=== PATIENT | male | born 1955 | race Caucasian/White ===

== ENCOUNTER 2023-03-30 14:15 | Emergency (ER) | payer OTHER ==
[~2023-03-30] VITALS: Ht 175.3 cm; Wt 77.1 kg
[~2023-03-30 14:15] MED LIST: ALBU90OI INH; ATOR10 PO; BISA5EC PO; CITA20 PO; CLON1 PO; CLOP75 PO; CYCL10 PO; Hydroxyzine HCl50 MG PO; MELA3 PO; METO50ER PO; MULVITB&C PO; OLAN20 MM; PIRO20 PO; PROAIR RESPICL90 MCG INH; SYMBICORT 160-4.6 GM INH; TAMS.4ER PO; TIOT18 INH; TOPI25 PO; VITB100 PO; ZOLOFT50 MG PO; ZYPREXA15 MG PO; Zyprexa10 MG PO; [UNRECOGNIZED DRUG - OTHER]
[2023-03-30 16:45] VITALS: BP 132/113
[2023-03-30] MEDS ORDERED: MIRALAX17 GM PO (16:59)
[2023-03-30] MEDS ORDERED: DOC250 PO (16:59)
[2023-03-30] MEDS ORDERED: ADULT GLYCERIN1 EACH PR (16:59)
[2023-03-30] MEDS ORDERED: PRAHYD1AE TOP (17:00)
[2023-03-30] MEDS ORDERED: TUCKS1 EACH TOP (17:00)
== END 2023-03-30 17:15 | disposition home or self-care (01) ==
LOC: ER 14:15
DX: K56.41 Fecal impaction (principal); Z79.899 Other long term (current) drug therapy; F17.200 Nicotine dependence, unspecified, uncomplicated
CPT/HCPCS: 74177; A9270; J1885; J2250; Q9967